=== PATIENT | female | born 1945 | race Caucasian/White ===

== ENCOUNTER 2016-12-15 15:58 | Emergency (ER) | payer MEDICARE, BC ==
[2016-12-15 18:34] LABS: Hematocrit 43 % (35-47); Hemoglobin 14.2 g/dl (12.0-16.0); Mean Corpuscular HGB Conc 33 g/dl (31-36); Mean Corpuscular Hemoglobin 32 pg (27-31); Mean Corpuscular Volume 96 fL (80-97); Mean Platelet Volume 9 um3 (7.4-10.4); Red Blood Count 4.46 10^6/ul (4.0-5.4); Red Cell Distribution Width 13 % (10.5-15); White Blood Count 6.8 10^3/ul (3.5-10.8)
[2016-12-15 18:40] LABS: Albumin 4.4 g/dL (3.2-5.2); BUN/Creatinine Ratio 19.4 (8-20); C Reactive Protein 8.13 mg/L (< 5.00); Calcium 9.8 mg/dL (8.6-10.3); EGFR African American 122.7 (>60); EGFR Non-African American 95.4 (>60); Globulin 2.7 g/dL (2-4); Potassium 3.7 mmol/L (3.5-5.0); Total Bilirubin 0.4 mg/dL (0.2-1.0); Total Protein 7.1 g/dL (6.4-8.9)
[2016-12-15] MEDS ORDERED: Morphine INJ* 2 MG/ML 1 ML SYRINGE IV ONE (19:10)
[2016-12-15] MEDS ORDERED: NS 0.9% 1000 ML* 1,000 ML IV ONE (19:10)
--- NOTE | 2016-12-15 21:05 | ED ---
Abdiel Lucero Salem, scribed for Delfino Simms MD on 12/15/16 at 1917 . Abdominal Pain/Female - HPI Summary HPI Summary: Patient is a 71 y/o F who presents to the ED with abdominal pain since last night. She states that she underwent a colonoscopy yesterday at [facility], but states that she was distressed and could not hold still. She reports cramping and bleeding s/p; however, bleeding has now resolved. She also reports dizziness , but denies nausea. Pt states that she would like to be discharged after ED course. - History of Current Complaint Chief Complaint: EDAbdPain Stated Complaint: CRAMPING Time Seen by Provider: 12/15/16 19:05 Hx Obtained From: Patient Onset/Duration: Gradual Onset, Lasting Days, Still Present Timing: Days Severity Initially: Moderate Severity Currently: Moderate Pain Intensity: 5 Pain Scale Used: 0-10 Numeric Location: Diffuse Radiates: No Character: Cramping Aggravating Factor(s): Nothing Alleviating Factor(s): Nothing Associated Signs and Symptoms: Positive: Other: - Dizzy.. Negative: Nausea Allergies/Adverse Reactions: Allergies Allergy/AdvReac Type Severity Reaction Status Date / Time Sulfa Drugs Allergy Severe Hives Verified 04/28/14 09:53 Home Medications: Home Medications ALPRAZolam TAB* [Xanax TAB*] 0.5 mg PO BEDTIME 12/15/16 [History Confirmed 12/15] Multivitamins/Minerals TAB* [Theragran/minerals TAB*] 1 tab PO DAILY 12/15/16 [ History Confirmed 12/15/16] Omeprazole CAP* [Prilosec CAP* 20 MG] 20 mg PO DAILY 12/15/16 [History Confirmed 12/15/16] Pramipexole TAB* [Mirapex TAB*] 0.125 mg PO DAILY 12/15/16 [History Confirmed ] Simvastatin TAB(NF) [Zocor(NF)] 20 mg PO DAILY 12/15/16 [History Confirmed 12/15] traZODone TAB* [Desyrel TAB*] 150 mg PO BEDTIME 12/15/16 [History Confirmed ] PMH/Surg Hx/FS Hx/Imm Hx Endocrine/Hematology History: Denies: Hx Diabetes, Hx Thyroid Disease Cardiovascular History: Denies: Hx Hypertension Respiratory History: Denies: Hx Asthma, Hx Chronic Obstructive Pulmonary Disease (COPD) GI History: Reports: Other GI Disorders - colon polyp Denies: Hx Ulcer History: Reports: Other Problems/Disorders Musculoskeletal History: Reports: Other Musculoskeletal History - osteopenia Sensory History: Reports: Hx Contacts or Glasses - glasses Opthamlomology History: Reports: Hx Contacts or Glasses - glasses Psychiatric History: Reports: Hx Anxiety, Hx Depression - Surgical History Surgery Procedure, Year, and Place: Hysterectomy 2002, Left knee replacement 2005 Hx Anesthesia Reactions: No Infectious Disease History: Denies: Hx Hepatitis, Hx Human Immunodeficiency Virus (HIV), Traveled Outside the [place] in Last 30 Days - Family History Known Family History: Positive: Cardiac Disease - Brother. - Social History Alcohol Use: Rare Hx Substance Use: No Substance Use Type: Reports: None Hx Tobacco Use: No Smoking Status (MU): Never Smoked Tobacco Review of Systems Negative: Fever Positive: Abdominal Pain - "Cramping.". Negative: Nausea Positive: other - Bleeding. Neurological: Other - Dizzy. All Other Systems Reviewed And Are Negative: Yes Physical Exam Triage Information Reviewed: Yes Vital Signs On Initial Exam: Initial Vitals Temp Pulse Resp BP Pulse Ox 98.0 F 58 20 153/80 95 12/15/16 16:49 12/15/16 16:49 12/15/16 16:49 12/15/16 16:49 12/15/16 16:49 Vital Signs Reviewed: Yes Appearance: Positive: Well-Appearing, Pain Distress - mild discomfort Skin: Positive: Warm Head/Face: Positive: Normal Head/Face Inspection Eyes: Positive: RUTH ENT: Positive: Hearing grossly normal Neck: Positive: Supple Respiratory/Lung Sounds: Positive: Breath Sounds Present Cardiovascular: Positive: RRR Abdomen Description: Positive: No Organomegaly, Soft Bowel Sounds: Positive: Present - minimal diffuse abd tenderness Musculoskeletal: Positive: Strength/ROM Intact Neurological: Positive: Alert, Oriented to Person Place, Time Diagnostics - Vital Signs Vital Signs Temp Pulse Resp BP Pulse Ox 12/15/16 18:02 98.7 F 74 20 153/75 96 12/15/16 16:49 98.0 F 58 20 153/80 95 - Laboratory Lab Results: Lab Results 12/15/16 12/15/16 12/15/16 Range/Units 18:17 18:17 18:17 WBC 6.8 (3.5-10.8) 10^3/ul RBC 4.46 (4.0-5.4) 10^6/ul Hgb 14.2 (12.0-16.0) g/dl Hct 43 (35-47) % MCV 96 (80-97) fL MCH 32 H (27-31) pg MCHC 33 (31-36) g/dl RDW 13 (10.5-15) % Plt Count 222 (150-450) 10^3/ul MPV 9 (7.4-10.4) um3 Neut % (Auto) 56.0 (38-83) % Lymph % (Auto) 29.5 (25-47) % Sunflower % (Auto) 11.0 H (1-9) % Eos % (Auto) 2.9 (0-6) % Baso % (Auto) 0.6 (0-2) % Absolute Neuts (auto) 3.8 (1.5-7.7) 10^3/ul Absolute Lymphs (auto) 2.0 (1.0-4.8) 10^3/ul Absolute Monos (auto) 0.7 (0-0.8) 10^3/ul Absolute Eos (auto) 0.2 (0-0.6) 10^3/ul Absolute Basos (auto) 0 (0-0.2) 10^3/ul Absolute Nucleated RBC 0 10^3/ul Nucleated RBC % 0.1 Sodium 138 (133-145) mmol/L Potassium 3.7 (3.5-5.0) mmol/L Chloride 103 (101-111) mmol/L Carbon Dioxide 26 (22-32) mmol/L Anion Gap 9 (2-11) mmol/L BUN 12 (6-24) mg/dL Creatinine 0.62 (0.51-0.95) mg/dL Est GFR ( Amer) 122.7 (>60) Est GFR (Non-Af Amer) 95.4 (>60) BUN/Creatinine Ratio 19.4 (8-20) Glucose 99 (70-100) mg/dL Lactic Acid 0.9 (0.5-2.0) mmol/L Calcium 9.8 (8.6-10.3) mg/dL Total Bilirubin 0.40 (0.2-1.0) mg/dL AST 18 (13-39) U/L ALT 18 (7-52) U/L Alkaline Phosphatase 81 (34-104) U/L C-Reactive Protein 8.13 H (< 5.00) mg/L Total Protein 7.1 (6.4-8.9) g/dL Albumin 4.4 (3.2-5.2) g/dL Globulin 2.7 (2-4) g/dL Albumin/Globulin Ratio 1.6 (1-3) Lipase 18 (11.0-82.0) U/L Result Diagrams: 12/15/16 18:17 12/15/16 18:17 Lab Statement: Any lab studies that have been ordered have been reviewed, and results considered in the medical decision making process. - CT abd/pelvis CT Interpretation Completed By: Radiologist - No bowel obstruction, colitis, diverticulitis, free fluid or free air. Appendix not seen. No pericecal inflammation to suggest acute appendicitis. Unremarkable pancreas, kidneys and gallbladder. Hysterectomy. Small umbilical hernia containing fat. Fixation left femur. Re-Evaluation - Re-Evaluation First Eval Re-Evaluation Time: 23:19 Change: Improved Comment: Reviewed results. She is improved and looking forward to going home. Abdominal Pain Fem Course/Dx - Course Course Of Treatment: 71 y/o F presents with abdominal pain since yesterday s/p colonoscopy at [facility]. She reports cramping and bleeding s/p; however, bleeding has now resolved. She also reports dizziness, but denies nausea. Pt received Morphine and fluids in ED course. CT a/p shows, per radiology, No bowel obstruction, colitis, diverticulitis, free fluid or free air. Appendix not seen. No pericecal inflammation to suggest acute appendicitis. Unremarkable pancreas, kidneys and gallbladder. Hysterectomy. Small umbilical hernia containing fat. Fixation left femur. Pt will be DC'd to follow up. - Diagnoses Provider Diagnoses: Abdominal pain Discharge - Discharge Plan Condition: Improved Disposition: HOME Patient Education Materials: Abdominal Pain (ED) Referrals: Doris Cordova MD [Primary Care Provider] - Additional Instructions: Please follow up with your primary care provider and return for worsening of symptoms. The documentation as recorded by the Abdiel wilson Salem accurately reflects the service I personally performed and the decisions made by , Delfino Simms MD.
[2016-12-15] MEDS ORDERED: Iohexol 300* (CONTRAST) 10 ML SDV IV ONE (21:31)
[2016-12-15 21:43] LABS: Urine Bacteria Absent (Absent); Urine Bilirubin Negative (Negative); Urine Glucose Negative (Negative); Urine Nitrite Negative (Negative)
[2016-12-15 23:42] VITALS: BP 166/84
--- NOTE | 2016-12-16 07:40 | RAD ---
INDICATION: Pain following colonoscopy. Evaluate for free air. COMPARISON: CT January 09, 2014 TECHNIQUE: Axial source images were obtained from the hemidiaphragms to the symphysis pubis following administration of oral and intravenous contrast. 121 mL Omnipaque 300 was utilized. Coronal and sagittal reconstructed images were acquired. Lung bases: The lung bases are clear. Liver: The liver is normal in size. There are no masses. There is no ductal dilatation. Gallbladder: There are no calcified gallstones. There is no evidence of wall thickening or pericholecystic fluid. Spleen: The spleen is normal in size. There are no masses. Pancreas: There is no focal pancreatic mass or ductal dilatation. Adrenal glands: Low index of suspicion, low density, 7 mm right adrenal lesion, unchanged. Normal left adrenal gland. Kidneys: The kidneys are normal in size and position. There are prompt nephrograms and there is prompt excretion bilaterally. There are no renal parenchymal masses. There is no evidence of nephrolithiasis. Adenopathy: There is no evidence of adenopathy by size criteria. Fluid collections: There are no free or localized fluid collections. Vessels:There are no significant atherosclerotic changes involving the aorta. There is no focal aneurysm. The iliac vessels are normal in caliber. The IVC appears normal. GI tract: There are no acute CT bowel findings. There is no obstruction. The stomach and small bowel appear normal. The lower GI tract is remarkable for moderate diverticula of the sigmoid colon. There is no pneumatosis. There is no obstruction. There is no free intraperitoneal air. Pelvic organs: There is hysterectomy. There is no adnexal mass Bladder: There are no bladder masses. Abdominal and pelvic soft tissues: The extraperitoneal abdominal and pelvic soft tissues appear normal.. Osseous structures: There are no acute osseous findings. There is spondylitic change of the lumbar spine with multilevel degenerative disc space narrowing with vacuum disc phenomena. There is a grade 1 anterolisthesis L5 on S1. There are postoperative changes about the left femur with left femoral rodding. Other: None IMPRESSION: No acute CT findings. Scattered diverticula. No evidence of obstruction, pneumatosis, or perforation.
== END 2016-12-15 23:41 | disposition home or self-care (01) ==
LOC: ED 15:58
DX: R10.9 Unspecified abdominal pain (principal); R42 Dizziness and giddiness
CPT/HCPCS: 36415; 74177; 80053; 81003; 81015; 83605; 83690; 85025; 86140; 87086; 96374; 99283; J2270; Q9967

== ENCOUNTER 2018-02-28 10:01 | Day surgery (SDC) | payer MEDICARE, BC ==
[~2018-02-28 10:01] MED LIST: Acetaminophen TAB* 325 MG PO PRN; Buffered Lidocaine 0.9% SYRIN* 5 ML/SYR SYRINGE INTRADERM ONE; Cyclopentolate 1% OPTH.SOL* 2 ML BTL ONE; Ketorolac 0.5% OPHTH (NF) 0.5 % 5 ML BTL ONE; Lidocaine 1%* 5 ML VIAL ONE; Lidocaine 2% EPI 1:200000 MPF*10-20 ML VIAL ONE; Neomycin/Polymy/Dex OPTH.SUSP* MAXITROL 0.1% 5 ML ONE; Phenylephrine 2.5% OPTH.SOL* 2 ML BTL ONE; Povidone Iodine 5% OPTH* 30 ML BTL ONE; Proparacaine 0.5% OPHTH.SOL* 15 ML BTL ONE; acetaZOLAMIDE TAB* 250 MG ONE
[2018-02-28] MEDS ORDERED: Midazolam* 1 MG/ML 5 ML VIAL (5 MG) ONE (12:42)
[2018-02-28] MEDS ORDERED: fentaNYL* 50 MCG/ML 2 ML VIAL (100 MCG VIAL) ONE (13:10)
[2018-02-28] MEDS ORDERED: Midazolam* 1 MG/ML 2 ML VIAL (2 MG) ONE (13:12)
[2018-02-28] MEDS ORDERED: KETAMINE HCL* 50 MG/ML 10 ML VIAL ONE (13:20)
[2018-02-28] MEDS ORDERED: Propofol* 10 MG/ML 20 ML BTL IV PUSH ONE (13:24)
[2018-02-28 13:35] VITALS: BP 135/74
--- NOTE | 2018-03-01 11:58 | OP ---
DATE OF OPERATION: 02/28/18 - [facility] DATE OF : 49 SURGEON: Camden Webster M.D. PREOPERATIVE DIAGNOSIS: Cataract, right eye. POSTOPERATIVE DIAGNOSIS: Cataract, right eye. OPERATIVE PROCEDURE: Extracapsular cataract extraction with intraocular lens implant, right eye. DESCRIPTION OF PROCEDURE: The patient was brought to the operating room after being given 1/2% Alcaine with epinephrine drops in the preoperative area. The eye was prepped and draped in the usual sterile fashion. Sterile drape and eyelid speculum were placed. Again, topical 1/2% Alcaine with epinephrine was given. A paracentesis incision was made at the 9 o'clock position with the No.75 blade. Clear cornea incision 2.2 x 2.2-mm was created at the 12 o'clock position starting at the anterior limbus using the 2.2-mm keratome. The anterior chamber was irrigated with 0.4 mL of 1% non-preservative intracameral lidocaine and filled with DisCoVisc. A capsulorrhexis was completed using the cystotome and the Utrata forceps. Hydrodissection was performed with balanced salt solution. The lens nucleus was removed with the Phacoemulsification handpiece without incident. Cortex was removed with the irrigation-aspiration handpiece. The capsular bag was re-inflated using DisCoVisc and an [id number] implant was inserted with the shooter. The irrigation-aspiration handpiece was used to remove all residual DisCoVisc. The eye was refilled with balanced salt solution and the wound checked and found to be watertight. Topical Maxitrol drops were given. [id number]/[facility] #: [id number] MTDD
== END 2018-02-28 13:42 | disposition home or self-care (01) ==
LOC: OREAST 10:01
PROVIDERS: ATTEND Specialist
DX: H25.11 Age-related nuclear cataract, right eye (principal); H40.023 Open angle with borderline findings, high risk, bilateral; F41.9 Anxiety disorder, unspecified; M19.90 Unspecified osteoarthritis, unspecified site
CPT/HCPCS: A9270-GY; J2250; J2704; J3010; V2632

== ENCOUNTER 2018-03-07 07:46 | Day surgery (SDC) | payer MEDICARE, BC ==
[~2018-03-07 07:46] MED LIST changes: -Cyclopentolate 1% OPTH.SOL* 2 ML BTL ONE; -Ketorolac 0.5% OPHTH (NF) 0.5 % 5 ML BTL ONE; -Lidocaine 1%* 5 ML VIAL ONE; -Lidocaine 2% EPI 1:200000 MPF*10-20 ML VIAL ONE; -Neomycin/Polymy/Dex OPTH.SUSP* MAXITROL 0.1% 5 ML ONE; -Phenylephrine 2.5% OPTH.SOL* 2 ML BTL ONE; -Povidone Iodine 5% OPTH* 30 ML BTL ONE; -Proparacaine 0.5% OPHTH.SOL* 15 ML BTL ONE; -acetaZOLAMIDE TAB* 250 MG ONE
[2018-03-07 08:25] VITALS: BP 142/72
[2018-03-07] MEDS ORDERED: Midazolam* 1 MG/ML 5 ML VIAL (5 MG) ONE (09:20)
[2018-03-07] MEDS ORDERED: fentaNYL* 50 MCG/ML 2 ML VIAL (100 MCG VIAL) ONE (09:43)
[2018-03-07] MEDS ORDERED: Midazolam* 1 MG/ML 2 ML VIAL (2 MG) ONE (09:50)
[2018-03-07] MEDS ORDERED: Phenylephrine 2.5% OPTH.SOL* 2 ML BTL ONE (15:46)
[2018-03-07] MEDS ORDERED: acetaZOLAMIDE TAB* 250 MG ONE (15:46)
[2018-03-07] MEDS ORDERED: Ketorolac 0.5% OPHTH (NF) 0.5 % 5 ML BTL ONE (15:46)
[2018-03-07] MEDS ORDERED: Proparacaine 0.5% OPHTH.SOL* 15 ML BTL ONE (15:46)
[2018-03-07] MEDS ORDERED: Lidocaine 2% EPI 1:200000 MPF*10-20 ML VIAL ONE (15:46)
[2018-03-07] MEDS ORDERED: Cyclopentolate 1% OPTH.SOL* 2 ML BTL ONE (15:46)
[2018-03-07] MEDS ORDERED: Lidocaine 1%* 5 ML VIAL ONE (15:46)
[2018-03-07] MEDS ORDERED: Povidone Iodine 5% OPTH* 30 ML BTL ONE (15:46)
[2018-03-07] MEDS ORDERED: Neomycin/Polymy/Dex OPTH.SUSP* MAXITROL 0.1% 5 ML ONE (15:46)
--- NOTE | 2018-03-07 22:44 | OP ---
DATE OF OPERATION: 03/07/18 [facility] DATE OF : 49 SURGEON: Camden Webster M.D. PREOPERATIVE DIAGNOSIS: Cataract, left eye. POSTOPERATIVE DIAGNOSIS: Cataract, left eye. OPERATIVE PROCEDURE: Extracapsular cataract extraction with intraocular lens implant, left eye. DESCRIPTION OF PROCEDURE: The patient was brought to the operating room after being given 1/2% Alcaine with epinephrine drops in the preoperative area. The eye was prepped and draped in the usual sterile fashion. Sterile drape and eyelid speculum were placed. Again, topical 1/2% Alcaine with epinephrine was given. A paracentesis incision was made at the 3 o'clock position with the No.75 blade. Clear cornea incision 2.2 x 2.2-mm was created at the 6 o'clock position starting at the anterior limbus using the 2.2-mm keratome. The anterior chamber was irrigated with 0.4 mL of 1% non-preservative intracameral lidocaine and filled with DisCoVisc. A capsulorrhexis was completed using the cystotome and the Utrata forceps. Hydrodissection was performed with balanced salt solution. The lens nucleus was removed with the Phacoemulsification handpiece without incident. Cortex was removed with the irrigation-aspiration handpiece. The capsular bag was re-inflated using DisCoVisc and an [id number] implant was inserted with the shooter. The irrigation-aspiration handpiece was used to remove all residual DisCoVisc. The eye was refilled with balanced salt solution and the wound checked and found to be watertight. Topical Maxitrol drops were given. [id number]/[facility] #: [id number] MTDD
== END 2018-03-07 10:24 | disposition home or self-care (01) ==
LOC: OREAST 07:46
PROVIDERS: ATTEND Specialist
DX: H25.12 Age-related nuclear cataract, left eye (principal); H40.023 Open angle with borderline findings, high risk, bilateral; E78.5 Hyperlipidemia, unspecified; K21.9 Gastro-esophageal reflux disease without esophagitis; F41.8 Other specified anxiety disorders
CPT/HCPCS: A9270-GY; J2250; J3010; V2632